=== PATIENT | female | born 1990 | race Hispanic/Latino ===

== ENCOUNTER 2021-01-18 01:39 | Inpatient (IN) | payer OTHER ==
[2021-01-18] VITALS (17 sets, daily range): BP systolic 101–130; BP diastolic 53–77
[~2021-01-18] VITALS: Ht 177.8 cm; Wt 78.4 kg
[2021-01-18] MEDS ORDERED: LACTATED RINGER'S 1000 ML IV STA (02:15)
[2021-01-18] MEDS ORDERED: PRENTAB9 PO (02:39)
[2021-01-18 03:03] LABS: HEMATOCRIT 39.7 % (36.0-47.0); HEMOGLOBIN 13.2 g/dl (12.0-15.5); MEAN CORPUSCULAR HEMOGLOBIN 32.5 pg (27.0-33.0); MEAN CORPUSCULAR HGB CONC 33.2 g/dl (32.0-36.5); MEAN CORPUSCULAR VOLUME 97.8 fl (80.0-96.0); PLATELET COUNT, AUTOMATED 169 10^3/uL (150-450); RED BLOOD COUNT 4.06 10^6/uL (4.00-5.40); WHITE BLOOD COUNT 8.1 10^3/uL (4.0-10.0)
[2021-01-18] MEDS: LR 1,000 ML IV SCH ×3 (04:52→18:15)
--- NOTE | 2021-01-18 05:04 | HPEPDOC ---
Obstetrical History & Physical General Date of Admission Jan 18, 2021 at 02:40 History of Present Illness 26 yo at 40+3 weeks gestation by LMP of [id number] c/w 11+3 week US presented to L&D with the complaint of regular, painful contractions. She denies any vaginal bleeding or leakage of fluid. She endorses movement. Chief Complaint: Contractions, term Information Provided By: Patient Age: 30 : 2 Term: 1 Pre-term: 0 Abortions: 0 Livin Care Care: Good Care Dating Final EDC: Jan 15, 2021 Final EDC for Daily Update: Jan 15, 2021 Final EDC by: LMP (BETTY of [id number] by LMP of [id number] c/w 11+3 week US) Antepartum Course Diagnos(e)s Bipolar --> stable Anemia Past Medical History Past Obstetrical History : Past Obstetrical History: Multigravida ( in 2014, uncomplicated, pelvis proven to 8lbs 1oz) [employer] History: Abnormal Pap (History of LSIL) Past Medical History Medical History Bipolar Hx of LSIL Surgical History: Tonsilectomy, [place] teeth, Other (Breast lumpectomy) Family History Significant Family History: No pertinent family hx Social History Marital Status: Family situation: Spouse/partner home Psychosocial History: No pertinent psych hx * Smoker: non-smoker Alcohol: Denies Drugs: denies Imunizations Tdap status: current Influenza Status: needs Allergies Coded Allergies: No Known Allergies (Unverified , 01/18/21) Medications Scheduled No.137/Iron/Folic Acd ( Vitamin Tablet) 1 Each Tablet, 1 TAB PO DAILY Physical Examination Physical Examination GENERAL: Alert and oriented times three. ABDOMEN: Gravid and non-tender to touch. FETUS: Is vertex (VTX) by sterile vaginal examination (SVE) EXTREMITIES: No edema. Vital Signs/I&O Vital Signs Date Time Temp Pulse Resp B/P (MAP) Pulse Ox O2 Delivery O2 Flow Rate FiO2 01/18/21 03:29 75 18 112/65 (81) 01/18/21 02:03 99.9 99 Room Air Laboratory Data 24H LABS Laboratory Tests 2 01/18/21 02:42: Serology Scanned Report Hepatitis B Testing 01/18/21 02:58: Nucleated Red Blood Cells % (auto) 0.0 CBC/BMP Laboratory Tests 01/18/21 02:58 Pertinent Laboratoy Data Blood Type: A+ RBC Antibody Screen: Negative HIV: Negative Hepatitis B: Negative Hepatitis C: Unknown Rapid Plasma Reagin: Nonreactive Rubella: Immune Varicella: Immune Chlamydia/Gonorrhea: Negative Group B Streptococcus: Negative Quad Screen Test: Unknown Cystic Fibrosis: Negative Glucose Tolerance Test: 106 Anatomy Ultrasound Placenta Location: Posterior Normal Anatomy: Yes Placenta Previa: No Steroid Therapy Steroid Therapy: No Vaginal Examination Dilation: 8 cm Effacement: 100% Station: -1 Cervical Consistency: Soft Cervical Position: Anterior Presentation: Cephalic presentation Position: Vertex (occiput) Assessment Heart Rate (FHR): 120 Variability: Moderate Accelerations: Positive Decelerations: None Tocometer Frequency: regular Strength: palpated as moderate Assessment/Plan Assessment 30 yo at 40+3 weeks gestation presented to L&D in active labor. Plan Admit for expectant management of labor. Will augment as clinically indicated. Apply IV fluids. Labs per L&D protocol. GBS negative. Clear liquid diet. Patient may have epidural if desired. Anticipate . Labor and Delivery Counseling We reviewed delivery risks including lacerations, risk of hemorrhage, and need for blood transfusion. All questions answered. CAROL SALAZAR DO Jan 18, 2021 05:04
[2021-01-18] MEDS ORDERED: CALCIUM CARBONATE 500 MG CHEW U/D PO ONE (07:40)
--- NOTE | 2021-01-18 08:11 | IPNPDOC ---
Obstetrical Progress Note Date of Service Jan 18, 2021 Subjective c/o back pain with contractions and heartburn Objective Vital Signs Date Time Temp Pulse Resp B/P (MAP) Pulse Ox O2 Delivery O2 Flow Rate FiO2 01/18/21 07:14 985.9 01/18/21 06:45 81 18 103/58 (73) 01/18/21 02:03 99 Room Air Assessment Heart Rate (FHR): 120 Variability: Moderate Accelerations: Positive Decelerations: None Heart Patterns: Tachycardia Heart Rate Tracing: Category I Tocometer Contractions: Yes Frequency: every 2-5 min. Duration: greater than 60 seconds Strength: palpated as moderate Sterile Vaginal Examination Dilation: 8 cm Effacement (%): 90% Station: -1 Cervical Consistency: Soft Cervical Position: Posterior Postion/Presentation: Cephalic presentation Assessment and Plan Age: 30 : 2 Term: 1 Pre-term: 0 Abortions: 0 Livin EGA at Admission: 40 (+3) Status: Reassuring Group B Streptococcus: Negative Anticipate: Vaginal Delivery Additional Comments tums x1 prn heartburn, pt assisted to change to hands and knees and coached to move through contractions. May change efm to intermittent auscultation, may use tub for hydrotherapy, encouraged continued maternal movement and oral hydration. May saline lock IV if oral hydration is tolerated. Monitor fo change in or maternal status, evaluate for change as indicated, anticipate vaginal delivery. JUANITA BERNAL CNM Jan 18, 2021 08:11
[2021-01-18] MEDS: PRENATAL VITAMINS CHEWABLE TABLET PO SCH (09:00)
--- NOTE | 2021-01-18 12:16 | IPNPDOC ---
Obstetrical Progress Note Date of Service Jan 18, 2021 Subjective Pt c/o back pain and lower abdominal cramping Objective Vital Signs Date Time Temp Pulse Resp B/P (MAP) Pulse Ox O2 Delivery O2 Flow Rate FiO2 01/18/21 10:37 100.0 77 18 101/53 (69) 01/18/21 02:03 99 Room Air Assessment Heart Rate (FHR): 125 Variability: Moderate Accelerations: Positive Decelerations: None Heart Rate Tracing: Category I Tocometer Contractions: Yes Frequency: irregular (q6-9 min) Duration: greater than 60 seconds Strength: palpated as moderate, resting tone palp/soft Sterile Vaginal Examination Dilation: 8 cm Effacement (%): 90% Station: -1 Cervical Consistency: Soft Cervical Position: Middle Postion/Presentation: Cephalic presentation Assessment and Plan Age: 30 : 2 Term: 1 Pre-term: 0 Abortions: 0 Livin EGA at Admission: 40 (+3) Status: Reassuring Group B Streptococcus: Negative Anticipate: Vaginal Delivery Additional Comments Pt assisted to Welcher's position and coached through three contractions before returning to a semi recumbent position where she experienced nausea and vomiting. AROM with no fluid noted at the time of cervical exam. Pt was then assisted to a left lateral position and educated on options for increasing frequency of contractions. Pt desires to attempt nipple stimulation to increase contractions. Nursing staff provided instructions on nipple stimulation with pt expressed understanding of instructions. LR @125ml/hr, continuous efm x2, encourage nipple stimulation for increased frequency of contractions and frequent maternal movement, monitor for change in or maternal status, evaluate for change as indicated. JUANITA BERNAL CNM Jan 18, 2021 12:16
[2021-01-18] MEDS ORDERED: CALCIUM CARBONATE 500 MG CHEW U/D PO PRN (12:20)
[2021-01-18] MEDS ORDERED: OXYTOCIN 30 UNITS IN 0.9% NaCl 500ML IV BAG (J2590) As Ordered ONE (12:22)
[2021-01-18] MEDS ORDERED: OXYTOCIN DRIP 30 UNITS in IV 1 EA IV SCH (13:25)
[2021-01-18] MEDS ORDERED: METHYLERGONOVINE MALEATE 0.2 MG TAB PO PRN (13:25)
[2021-01-18] MEDS ORDERED: DOCUSATE SODIUM 100MG CAPSULE PO PRN (13:25)
[2021-01-18] MEDS ORDERED: MEASLES,MUMPS,RUBELLA VACCINE INJ (MMR-II) (90707) SC SCH (13:25)
[2021-01-18] MEDS ORDERED: RHOGAM 300 MCG (1500 IU) INJ (J2790) IM SCH (13:25)
[2021-01-18] MEDS ORDERED: ACETAMINOPHEN TAB 650MG DOSE (2X325MG) PO PRN (13:25)
[2021-01-18] MEDS ORDERED: DIBUCAINE 1% OINTMENT 30GM TOP PRN (13:25)
--- NOTE | 2021-01-18 13:55 | DNPDOC ---
[facility] Delivery Note Delivery Note DATE OF DELIVERY: 18Jan2021 PREDELIVERY DIAGNOSIS: 40-3/7 weeks' gestation and labor. POST DELIVERY DIAGNOSIS: Delivered. PROCEDURE: Spontaneous vaginal delivery. PAINT TINTER: Meghan Bernal CNM ANESTHESIA: none. ESTIMATED BLOOD LOSS: 700 mL. FINDINGS: 7 pound 9 ounce (3430gm) male infant Dusty, Score 9/9, no nuchal cord. DELIVERY SUMMARY: Patient is a 30-year-old 2 now para 2 who was admitted to labor and delivery for active labor on 18Jan2021. Pt called out with urge to push and was found to be C/C/+2 by nursing staff. Made gradual decent with maternal pushing efforts to in OA presentation. No nuchal cord was noted after delivery of the head. The fetus restituted to RAMOS and the right anterior shoulder delivered with gentle downward traction followed easily by the posterior shoulder and corpus. The vigorous male was placed immediately skin to skin on the maternal abdomen where he was dried and stimulated to cry. Pitocin infusion was initiated per protocol. The cord was clamped x 2 after pulsation ceased and cut by the FOB. The placenta delivered spontaneously intact in Conte presentation with moderate bleeding, fundus firmed with massage. Examination of the perineum revealed a perineal abrasion with minimal bleeding which stopped with pressure. A brisk increase in bleeding was noted and the fundus found to be soft and rising. The cervix was swept with no clots or membrane noted. The fundus was massaged until firm and bleeding resolved appropriately. 1000mcg cytotec was placed MS. Pt was educated on fu ndal massage, normal recovery, and reasons to call. Mother and infant entered the recovery phase in stable condition. MEGHAN BERNAL CNM Jan 18, 2021 13:55
[2021-01-18] MEDS: IBUPROFEN 800 MG TAB PO PRN (20:24)
[2021-01-19] MEDS: IBUPROFEN 800 MG TAB PO PRN ×4 (05:25→18:20)
[2021-01-19 05:50] VITALS: BP 106/64
--- NOTE | 2021-01-19 07:23 | IPNPDOC ---
Progress Note Date of Service: Jan 19, 2021 Day#: 1 Progress Note SUBJECT: 30-year-old 2 now para 2 status post uncomplicated spontaneous vaginal delivery at 40 -3/7 weeks' doing well day # . She has been ambulating, voiding spontaneously without issue and tolerating regular diet. Breast feeding without issue. Reports lochia is [like a normal period]. Patient is ambulating well. [Reports some cramping with . Denies any pain. Voiding and stooling without difficulty]. OBJECTIVE: Vital Signs Date Time Temp Pulse Resp B/P (MAP) Pulse Ox O2 Delivery O2 Flow Rate FiO2 01/19/21 05:50 96.3 66 14 106/64 (78) 01/18/21 18:00 99.7 91 14 125/77 (93) 97 Room Air 01/18/21 15:30 99.7 76 15 129/63 (85) 98 Room Air 01/18/21 14:18 100.0 81 18 117/70 (86) 01/18/21 14:03 72 18 113/64 (80) 01/18/21 13:48 75 18 114/55 (74) 01/18/21 13:33 75 18 128/59 (82) 01/18/21 13:18 72 18 117/61 (79) 01/18/21 13:09 105 18 130/73 (92) 01/18/21 11:52 94 18 127/61 (83) 01/18/21 10:37 100.0 77 18 101/53 (69) 01/18/21 09:06 99.9 98 20 109/64 (79) 01/18/21 08:06 99.5 Intake & Output 01/19/21 06:00 Intake Total 2841 ml Output Total 1100 ml Balance 1741 ml Current Medications Medications (Trade) Dose Ordered Sig/Jaciel Route PRN Reason Start Time Stop Time Status Last Admin Dose Admin Acetaminophen (Tylenol Tab) 650 mg Q4HP PRN PO PAIN LEVEL 1-5 01/18/21 13:25 01/19/21 02:10 650 MG Calcium Carbonate (Tums) 1,000 mg Q4HP PRN PO HEARTBURN 01/18/21 12:20 01/18/21 12:33 1,000 MG Dibucaine (Dibucaine 1%) Apply to perineum Q4H PRN TOP PERINEUM PAIN 01/18/21 13:25 01/18/21 21:52 1 DOSE Docusate Sodium (Colace) 100 mg QHSP PRN PO CONSTIPATION 01/18/21 13:25 01/18/21 20:24 100 MG Ibuprofen (Advil) 800 mg Q8HP PRN PO PAIN LEVEL 6-10 01/18/21 13:25 01/19/21 05:25 800 MG VITAL SIGNS: Within normal limits, afebrile. Alert and oriented times three. Heart rate: Regular rate Abdomen: Fundus firm at U-1. Soft, NTTP. ASSESSMENT: 30-year-old 2 now para 2 who was admitted to labor and delivery for induction of labor on 18Jan2021. Status post uncomplicated spontaneous vaginal delivery of male , doing well on day 1. Vitals within normal limits, afebrile, hemodynamically stable with no evidence of infection. PLAN: 1. Discharge to home tomorrow (awaiting peds discharge of infant) 2. Tylenol and Motrin for pain. 3. Encourage breast feeding and ambulation. 4. Desires Mirena IUD at wk PP visit 5. Routine PP visit in 6 weeks in clinic. VS, I&O, 24H, Fishbone Vital Signs/I&O Vital Signs Date Time Temp Pulse Resp B/P (MAP) Pulse Ox O2 Delivery O2 Flow Rate FiO2 01/19/21 05:50 96.3 66 14 106/64 (78) 01/18/21 18:00 97 Room Air I&O- Last 24 Hours up to 6 AM 01/19/21 06:00 Intake Total 2841 ml Output Total 1100 ml Balance 1741 ml SHERRIE BRANDT M.D. Jan 19, 2021 07:23
[2021-01-19] MEDS: PRENATAL VITAMINS CHEWABLE TABLET PO SCH (09:06)
[2021-01-19 18:00] VITALS: BP 116/69
[2021-01-20 06:00] VITALS: BP 100/53
--- NOTE | 2021-01-20 07:10 | IPNPDOC ---
Progress Note Date of Service: Jan 20, 2021 Progress Note 26 yo G2 now P2 PPD#2 s/p uncomplicated on 18Jan2021 after being admitted for active labor. She had a 700ml EBL with delivery and received uterotonics. Bleeding has been stable since then. Dejah reports feeling well this morning. She is ambulating, voiding, tolerating a regular diet, and has minimal lochia. Vitals - VSS, afebrile, normotensive, non tachycardic General - AAOX3, laying in bed, pleasant and conversant, NAD Abdomen - Fundus firm at U-1. No fundal tenderness. Extremities - No edema UO - appropriate Dejah is doing well and is making an appropriate recovery. Baby circumcised late last night. If baby cleared for discharge later today, then mom can go home too. Otherwise continue routine care. All questions answered. Baltazar VS, I&O, 24H, Fishbone Vital Signs/I&O Vital Signs Date Time Temp Pulse Resp B/P (MAP) Pulse Ox O2 Delivery O2 Flow Rate FiO2 01/20/21 06:00 98.2 66 20 100/53 (69) 99 Room Air CAROL SALAZAR DO Jan 20, 2021 07:10
[2021-01-20] MEDS: PRENATAL VITAMINS CHEWABLE TABLET PO SCH (08:56)
[2021-01-20] MEDS: IBUPROFEN 800 MG TAB PO PRN (08:57)
--- NOTE | 2021-01-20 12:53 | OBDS ---
[facility] Obstetrical Discharge Sum. Obstetrical Discharge Summary Date: Jan 20, 2021 Time: 12:50 : 2 Term: 2 Pre-term: 0 Abortions: 0 Livin VDRL: Non-Reactive Rh: Negative Rubella: Immune Delivery 26 yo G2 now P2 PPD#2 s/p uncomplicated on 18Jan2021 after being admitted for active labor. She had a 700ml EBL with delivery and received uterotonics. Bleeding has been stable since then. Sex: Male Infant Weight: grams (3430) A/P, Post Course List any complications Admission diagnosis: Active labor at term Discharge diagnosis: Normal vaginal delivery Condition at Discharge: Stable Discharge Instructions: Home/other Activity: May resume normal activities Diet: Regular Medications: Take medications prescribed as needed Follow-up: in 4-6 weeks at the [facility] [employer] [employer] [facility] clinic Other: None NEAL CORBIN CNM Jan 20, 2021 12:53
== END 2021-01-20 13:48 | disposition home or self-care (01) | DRG 806 ==
LOC: M LDO 01:39 → M LDI 02:40 → M OBS 15:35
PROVIDERS: ADMIT Obstetrics & Gynecology; ATTEND Obstetrics & Gynecology
PROC: 10E0XZZ Delivery of Products of Conception, External Approach (ICD-10-PCS; principal; 2021-01-18)
PROC: 10907ZC Drainage of Amniotic Fluid, Therapeutic from Products of Conception, Via Natural or Artificial Opening (ICD-10-PCS; 2021-01-18)
DX: O48.0 Post-term pregnancy (principal); Z37.0 Single live birth; O72.0 Third-stage hemorrhage; Z3A.40 40 weeks gestation of pregnancy; O99.02 Anemia complicating childbirth; D64.9 Anemia, unspecified; O21.8 Other vomiting complicating pregnancy